=== PATIENT | female | born 1955 | race Caucasian/White ===

== ENCOUNTER 2016-12-03 14:08 | Day surgery (SDC) | payer OTHER ==
[2016-12-03] VITALS (17 sets, daily range): BP systolic 101–131; BP diastolic 57–88; PULSE 90–106; RESP 15–22; Ht 147.3 cm; Wt 79.0 kg
[~2016-12-03] VITALS: Ht 147.3 cm; Wt 79.0 kg
[~2016-12-03 14:08] MED LIST: AMLOPIDINE PO; ASPI-664 PO; CARV3.1260 PO; GLIM4TAB PO; LANT3I SC; LIRA0.6P SQ; METF-405 PO; NIAC500T81 PO; SITA100T8 PO; VALS80TA2 PO
[2016-12-03] MEDS ORDERED: LIDOCAINE 1% (STERILE-PAK) 30 ML INJ ONE (16:36)
[2016-12-03] MEDS ORDERED: METOCLOPRAMIDE 10 MG INJ ONE (16:45)
[2016-12-03] MEDS ORDERED: PROPOFOL 20 ML ONE (16:45)
[2016-12-03] MEDS ORDERED: MIDAZOLAM 1 MG/ML 2 ML INJ ONE (16:45)
[2016-12-03] MEDS ORDERED: FENTAnyl 50 MCG/ML VIAL ONE (16:45)
[2016-12-03] MEDS ORDERED: CEFAZOLIN 1 GM INJ ONE (16:50)
[2016-12-03] MEDS ORDERED: EPHEDrine SULFATE 50 MG/5 ML SYG ONE (17:16)
[2016-12-03] MEDS ORDERED: HYDROmorphONE (0.2 MG/ML) 10ML SYG IV PRN ×3 (17:30)
[2016-12-03] MEDS ORDERED: DIPHENHYDRAMINE 50 MG INJ IV PRN (17:30)
[2016-12-03] MEDS ORDERED: ONDANSETRON 4 MG INJ IV PRN (17:30)
[2016-12-03] MEDS ORDERED: MEPERIDINE 25 MG INJ IV PRN (17:30)
[2016-12-03] MEDS ORDERED: OXYCODONE/ACETAMINOPHEN (5/325) TAB PO PRN ×2 (17:30)
[2016-12-03] MEDS ORDERED: METOCLOPRAMIDE 10 MG INJ IV PRN (17:30)
--- NOTE | 2016-12-04 07:32 | OPR ---
DATE OF OPERATION: PREOPERATIVE DIAGNOSIS: Varicosities, right lower extremity. POSTOPERATIVE DIAGNOSIS: Varicosities right lower extremity. PROCEDURE: Right lower extremity phlebectomy. SURGEON: Thanh Ramos MD ANESTHESIA: Local plus IV sedation. CONSENT: Risks, benefits, complications, alternative therapies explained to the patient and the [facility], consent obtained. OPERATIVE TECHNIQUE: The patient was taken the operating room. After induction of IV sedation, pre pped and draped in usual sterile fashion. I made 3 separate incisions, right lower extremity, 5 mm in length. Incision was taken down to the subcutaneous tissue. Multiple segments of varicosities w ere resected using mosquito clamps. The wounds were irrigated and closed using interrupted 3-0 Vicr yl suture and Steri-Strips. The leg was then wrapped. The patient tolerated the procedure well. Dictated By: THANH COMBS/JOSE ALEJANDRO Conf#: [id number] DID#: [id number]
== END 2016-12-03 18:50 | disposition home or self-care (01) ==
LOC: SDS 14:08
PROVIDERS: ATTEND Thoracic Surgery (Cardiothoracic Vascular Surgery)
DX: I83.891 Varicose veins of right lower extremity with other complications (principal); I10 Essential (primary) hypertension; E11.9 Type 2 diabetes mellitus without complications; E78.5 Hyperlipidemia, unspecified
CPT/HCPCS: 37722; 82962; 88304; J0690; J2250; J2765; J3010; Z7512; Z7610

== ENCOUNTER 2017-08-23 11:27 | Day surgery (SDC) | payer OTHER ==
[2017-08-23] VITALS (15 sets, daily range): BP systolic 94–145; BP diastolic 56–78; PULSE 72–98; RESP 12–24
[~2017-08-23 11:27] MED LIST changes: +CEFAZOLIN 1 GM INJ ONE
[2017-08-23] MEDS ORDERED: THROMBIN 5000 UNIT VIAL ONE (12:51)
[2017-08-23] MEDS ORDERED: LIDOCAINE 1% (MPF) 30 ML INJ ONE (12:51)
[2017-08-23] MEDS ORDERED: HEPARIN 1000 UNITS/ML 10 ML INJ ONE (12:52)
[2017-08-23] MEDS ORDERED: HYDROmorphONE (0.2 MG/ML) 10ML SYG IV PRN (13:30)
[2017-08-23] MEDS ORDERED: FENTAnyl 50 MCG/ML VIAL IV PRN (13:30)
[2017-08-23] MEDS ORDERED: MEPERIDINE 25 MG INJ IV PRN (13:30)
[2017-08-23] MEDS ORDERED: DIPHENHYDRAMINE 50 MG INJ IV PRN (13:30)
[2017-08-23] MEDS ORDERED: LABETALOL HCL 20MG INJ IV PRN (13:30)
[2017-08-23] MEDS ORDERED: OXYCODONE/ACETAMINOPHEN (5/325) TAB PO PRN (13:30)
[2017-08-23] MEDS ORDERED: ONDANSETRON 4 MG INJ IV PRN (13:30)
[2017-08-23] MEDS ORDERED: hydrALAzine 20 MG INJ IV PRN (13:30)
[2017-08-23] MEDS ORDERED: MIDAZOLAM 1 MG/ML 2 ML INJ ONE (13:38)
[2017-08-23] MEDS ORDERED: PROPOFOL 20 ML ONE (13:38)
[2017-08-23] MEDS ORDERED: LIDOCAINE 2% (SDV) 5 ML INJ ONE (13:38)
[2017-08-23] MEDS ORDERED: METOCLOPRAMIDE 10 MG INJ ONE (14:16)
[2017-08-23] MEDS ORDERED: FAMOTIDINE 20 MG INJ ONE (14:16)
[2017-08-23] MEDS ORDERED: ONDANSETRON 4 MG INJ ONE (14:16)
[2017-08-23] MEDS ORDERED: FENTAnyl 50 MCG/ML VIAL ONE (14:20)
[2017-08-23] MEDS ORDERED: EPHEDrine SULFATE 50 MG/5 ML SYG ONE (14:51)
--- NOTE | 2017-08-23 15:45 | OPR ---
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 Anesthesia Type: general Estimated Blood Loss: none Transfusion none Specimen None Grafts/Implants none Tubes/Drains None Complications none Procedure Description Patient was seen in the operating room after induction of general anesthesia prepped and draped in usual sterile fashion I made multiple 5 mm incisions left anterior leg incisions were taken down to subcutaneous tissue multiple stab phlebectomies were done varicosities removed the incisions were closed using a single 4-0 Vicryl suture in interrupted fashion with Steri-Strips appropriate dressings applied patient tolerated procedure well end of dictation IGLESIA BOOGIE MD Aug 23, 2017 15:45
== END 2017-08-23 17:00 | disposition home or self-care (01) ==
LOC: SDS 11:27
PROVIDERS: ATTEND Thoracic Surgery (Cardiothoracic Vascular Surgery)
DX: I83.812 Varicose veins of left lower extremity with pain (principal); I10 Essential (primary) hypertension; E11.9 Type 2 diabetes mellitus without complications; E78.5 Hyperlipidemia, unspecified
CPT/HCPCS: 37799; 82962; J0690; J2250; J2405; J2765; J3010; Z7512; Z7610; J1644